=== PATIENT | male | born 1995 | race Caucasian/White ===

== ENCOUNTER 2018-03-02 19:25 | Emergency (ER) | payer SELFPAY, OTHER ==
[2018-03-02] MEDS ORDERED: HYDROCODONE/APAP (5/325) TAB PO (20:12)
[2018-03-02] MEDS: SODIUM CHLORIDE 0.9% 1L IRRIG IRR (20:12)
[2018-03-02] MEDS: LIDOCAINE 2%/EPI MPF (SDV) 20 ML VIAL INJ (20:12)
[2018-03-02] MEDS ORDERED: DIPHTH/TET/ACEL PERTUSS (ADULT) 0.5 ML VIAL IM (20:30)
[2018-03-02] MEDS: IBUPROFEN 600 MG TAB PO (20:31)
== END 2018-03-02 22:37 | disposition home or self-care (01) ==
LOC: FTE 19:25
DX: S01.81XA Laceration without foreign body of other part of head, initial encounter (principal); K04.7 Periapical abscess without sinus; R40.2412 Glasgow coma scale score 13-15, at arrival to emergency department; W01.198A Fall on same level from slipping, tripping and stumbling with subsequent striking against other object, initial encounter; Y92.89 Other specified places as the place of occurrence of the external cause
CPT/HCPCS: 12011; 70110; 99283-25